=== PATIENT | male | born 1995 | race Caucasian/White ===

== ENCOUNTER 2017-10-07 17:06 | Emergency (ER) | payer OTHER ==
[~2017-10-07] VITALS: Ht 170.2 cm; Wt 57.5 kg
[2017-10-07 17:19] VITALS: TEMP 36.9; Ht 170.2 cm; Wt 57.5 kg
[2017-10-07] MEDS ORDERED: IBUP-1428 PO (17:54)
[2017-10-07] MEDS ORDERED: PENI-82 PO (17:57)
[2017-10-07] MEDS ORDERED: TRAM-453 PO (17:57)
--- NOTE | 2017-10-07 17:59 | EMERGENCY ROOM VISIT NOTE ---
ED Visit Note First contact with patient: 17:22 CHIEF COMPLAINT: Toothache HISTORY OF PRESENT ILLNESS: This 22-year-old male patient presented to the emergency department, ambulatory, with a progressive toothache for past 3 days. The patient believes it is coming from his right front lower molar. He noticed the pain more significantly while laying down, and improves with sitting upright. He has been having difficulty sleeping. Today, the pain has improved slightly, however continues to be prevalent. The pain is now steady and severe and radiates to the face. The patient does not have a dentist appointment set up, as he does not have money to go to the dentist. They rate their pain a 9/10 and the ibuprofen he has been taking has not relieved the pain. In fact, the patient states he was beginning to experience some flank pain after the second or third day of taking high-dose ibuprofen, and his mother told him to discontinue this medication. He states the flank pain has improved since not taking any ibuprofen all day today. Denies facial swelling or fever. The patient denies any discharge from the mouth. REVIEW OF SYSTEMS: A 6 system review of systems was completed with positives and pertinent negatives listed in the HPI. ALLERGIES: None MEDICATIONS: None PMH: None. The patient denies history of seizures. SOCIAL HISTORY: The patient lives locally with family. He denies drug, alcohol, tobacco use. PHYSICAL EXAM: Vitals are noted on the nurse's note and reviewed by myself. Vital signs stable. Temperature 36.9C orally. GENERAL: This is a 22-year-old white male, in no acute distress, nondiaphoretic, well-developed well- nourished. Mouth: The #30 tooth is mildly carious and the gum is swollen and tender around it, without any discharge or signs of an abscess. The remainder of the pharynx and tonsils are without erythema, edema, or exudate. The airway is patent. There is no facial swelling, cervical or submandibular lymphadenopathy. The patient appears uncomfortable and in pain. The patient has overall good dental hygiene. EARS: External auditory canals clear, tympanic membranes pearly prater without erythema or effusion bilaterally. ED COURSE: The patient was seen and evaluated as above. He presents today with dental pain which has been ongoing for approximately 3 days. The patient has been taking ibuprofen which does help his pain, however has not taken the pain completely away. His symptoms are consistent with a possible periapical abscess. He will be treated with antibiotics and given a short course of pain medication. PDMP consulted with no suspicious findings noted. The patient was agreeable to this plan of care. Discharge instructions reviewed, and the patient was discharged home in good condition. I attest that I have personally reviewed the patient's current medication list. Patient was found to have normal blood pressure on screening and does not require follow-up. Differential diagnosis includes odontalgia, periapical abscess, acute sinusitis , osteomyelitis, gingivitis, pulpitis, dental caries, periodontitis, malignancy , and others DIAGNOSIS: Odontalgia The chart was completed utilizing [employer] voice recognition software. Grammatical errors, random word insertions, pronoun errors, and incomplete sentences are an occasional consequence of this system due to software limitations, ambient noise, and hardware issues. Any formal questions or concerns about the content, text, or information contained within the body of this dictation should be directly addressed to the provider for clarification. Current/Historical Medications Scheduled Penicillin V Potassium (Veetids), 500 MG PO QID Scheduled PRN Ibuprofen (Motrin), 800 MG PO Q8H PRN for Pain Tramadol Hcl (Ultram), 50 MG PO Q6H PRN for Pain Allergies Coded Allergies: No Known Allergies (Unverified , 10/07/17) Vital Signs Date Time Temp Pulse Resp B/P (MAP) Pulse Ox O2 Delivery O2 Flow Rate FiO2 10/07/17 17:19 36.9 92 18 126/78 99 Room Air Departure Information Impression Primary Impression: Odontalgia Dispostion Home / Self-Care Condition GOOD Prescriptions Tramadol Hcl (ULTRAM) 50 Mg Tab 50 MG PO Q6H Y for Pain, #12 TAB PRN PAIN Prov: Mar Wheeler PA-C 10/07/17 Penicillin V Potassium (Veetids) 500 Mg Tab 500 MG PO QID for 10 Days, #40 TAB Prov: Mar Wheeler PA-C 10/07/17 Referrals No Doctor, Assigned (PCP) Patient Instructions ED Abscess Dental, [facility] Additional Instructions You have been treated in the Emergency Department for Dental Pain. You have been prescribed Tramadol to be used for pain control. This is a narcotic medication. You cannot drive or consume alcohol while on this medicine. This medicine should only be used for pain that cannot be controlled with dtfi-pqc-snrebve pain medicines. You were prescribed Pen VK to be taken 4 times daily. This is an antibiotic. All antibiotics have the potential to cause diarrhea. Stop this medication and contact a medical provider if you were to develop any significant adverse side effects including: wheezing, shortness of breath, passing out, vomiting, or a diffuse rash. Always take antibiotics as directed and COMPLETE the ENTIRE course regardless of the improvement of your symptoms. For pain control, you can use the following [id number] medicines (if >12 yo): Ibuprofen(Motrin, Advil) may be used for fever or pain. Use 600mg every six hours as needed. Take with food. Avoid using more than 2400mg in a 24 hour period. Do not use 2400mg per day for more than three consecutive days without physician direction. Prolonged inappropriate use can lead to stomach upset or ulcers. (AND/OR) Acetaminophen(Tylenol) may be used for fever or pain. Use 1000mg every six hours as needed. Avoid using more than 3000mg in a 24 hour period. Refrain from smoking cigarettes or using chewing tobacco until you have been evaluated by your dentist. Keeping beverages lukewarm and consuming soft foods can decrease your pain. Warm compresses over the affected area may offer some relief. You MUST seek evaluation of your dental pain by a dentist following your visit to the Emergency Department. The Emergency Department is not capable of treating dental issues long-term. You should call your dentist as soon as possible to make an appointment for evaluation of your dental pain. Return to the emergency department if you develop the following symptoms despite treatment course outlined above: fever, intractable pain, increased redness, swelling, or purulent discharge.
[2017-10-07 18:05] VITALS: BP 122/76; PULSE 72; O2SAT 98
== END 2017-10-07 18:06 | disposition home or self-care (01) ==
LOC: C.EDB 17:12 → C.EDD 18:06
DX: K08.89 Other specified disorders of teeth and supporting structures (principal)